=== PATIENT | female | born 1940 | race Caucasian/White ===

== ENCOUNTER 2022-01-29 15:42 | Emergency (ER) | payer MEDICARE, OTHER ==
[2022-01-29 16:00] VITALS: BP 153/71
[2022-01-29] MEDS ORDERED: SODIUM CHLORIDE 0.9% 1,000 ML IV STA (16:02)
[2022-01-29] MEDS ORDERED: ONDANSETRON 4 MG/2 ML VIAL IVP STA (16:02)
--- NOTE | 2022-01-29 16:32 | ED Physician Documentation ---
History of Present Illness - Stated complaint Stated Complaint: UNABLE TO EAT - Chief complaint Chief Complaint: Abd Pain - History obtained from History obtained from: Patient - Additonal information Additional information: Patient is an 81-year-old female with a history of pancreatic cancer status post stent placement presenting for evaluation of ongoing nausea and generalized weakness for the last week since starting a new chemotherapy. She had chemo on January 24 and since that time has had decreased oral intake, 2 loose episodes of stool today which have improved after Imodium and overall feeling very weak. Her oncologist is Dr. Delgado at [facility]. She was directed to the emergency department for check of her labs and IV hydration. She does have p.o. Zofran and Compazine at home which do help with the nausea but the Compazine makes her feel very drowsy and does not help with her taking in more. She has not had any dizziness, falls, chest pain, difficulty breathing or dysuria. Review of Systems Constitutional: denies: Fever Nose: denies: Congestion Cardiac: denies: Chest pain / pressure Respiratory: denies: Dyspnea GI: reports: Nausea, Diarrhea (x2). denies: Abdominal Pain : denies: Dysuria Musculoskeletal: denies: Back pain Neurologic: reports: Generalized weakness PD PAST MEDICAL HISTORY - Past Medical History Endocrine/Autoimmune: HyPOthyroidism - Past Surgical History Past Surgical History: Yes /UNION CARPENTER: Oophrectomy - Present Medications Home Medications: Ambulatory Orders Medication Instructions Recorded Confirmed Amoxicillin/Potassium Clav 1 each PO BID #14 tablet 11/19/14 [Augmentin 875-125 Tablet] HYDROcod/ACETAM 5/325 [Vicodin 1 - 2 ea PO Q6H PRN #15 tablet 11/19/14 5/325] Levothyroxine Sodium 11/19/14 11/19/14 - Allergies Allergies/Adverse Reactions: Allergies Allergy/AdvReac Type Severity Reaction Status Date / Time bee's Allergy Respiratory Uncoded 01/29/22 16:00 - Social History Does the pt smoke?: No Smoking Status: Never smoker Does the pt drink ETOH?: Yes Does the pt have substance abuse?: No - Immunizations Immunizations are current?: Yes - POLST Patient has POLST: No PD ED PE NORMAL - General General: Alert and oriented X 3, No acute distress, Well developed/nourished - HEENT HEENT: Atraumatic, Moist mucous membranes - Neck Neck: Supple, no meningeal sign - Cardiac Cardiac: RRR, Strong equal pulses - Respiratory Respiratory: No respiratory distress, Clear bilaterally - Abdomen Abdomen: Soft, Non tender, Non distended - Derm Derm: Warm and dry - Extremities Extremities: No edema, No calf tenderness / cord - Neuro Neuro: Alert and oriented X 3, No motor deficit, Normal speech Results - Vitals Vitals: Vital Signs - 24 hr 01/29/22 15:55 Temperature 36 C L Heart Rate 75 Respiratory 16 Rate Blood Pressure 153/71 H O2 Saturation 97 Oxygen O2 Source Room air - Labs Labs: Laboratory Tests 01/29/22 01/29/22 17:20 17:20 WBC 3.7 L RBC 2.99 L Hgb 9.4 L Hct 28.5 L MCV 95.3 MCH 31.4 H MCHC 33.0 RDW 14.1 Plt Count 165 MPV 10.0 Neut # (Auto) 2.3 Lymph # (Auto) 1.2 L Moore # (Auto) 0.1 Eos # (Auto) 0.1 Baso # (Auto) 0.0 Absolute Nucleated RBC 0.00 Nucleated RBC % 0.0 Sodium 137 Potassium 3.1 L Chloride 103 Carbon Dioxide 25 Anion Gap 9.0 BUN 23 H Creatinine 0.9 Estimated GFR (MDRD) 60 L Glucose 121 H Calcium 8.3 L Total Bilirubin 1.9 H AST 62 H ALT 80 H Alkaline Phosphatase 502 H Total Protein 5.6 L Albumin 2.7 L Globulin 2.9 Albumin/Globulin Ratio 0.9 L Lipase 21 L PD MEDICAL DECISION MAKING - ED course Complexity details: reviewed results, re-evaluated patient, d/w patient, d/w family ED course: Pt presenting with nausea and poor PO intake since start of chemo this week. Vitals reassuring. Labs reviewed with no previous for comparison but pt has known pancreatic cancer with stent. Clinically do not think stent is obstructed. No abdominal pain. Feeling better with IV fluids and anti emetics, says she is feeling hungry. Tolerating PO and comfortable with close follow up with her oncologist. Daughter at bedside and also in agreement with plan. Departure - Departure Disposition: 01 Home, Self Care Clinical Impression: Chemotherapy-induced nausea, Decreased appetite, Hypokalemia Condition: Stable Instructions: ED Nausea Vomiting Comments: You were evaluated for nausea in the setting of recent chemotherapy. It may be a side effect from your chemo. I would recommend continuing with the medication to have at home for your nausea including Zofran and Compazine. Please continue with small amounts of food and fluid frequently throughout the day. It is important to stay hydrated. Your potassium level was slightly low and we did replace this. Your bilirubin level is 1.9 and your liver markers are slightly elevated which I suspect is related to your underlying neoplasm. However I am not able to access any old labs for comparison and would recommend close follow- up with your specialists. If you have any new or worsening symptoms please return to the emergency department. Discharge Date/Time: 01/29/22 19:10
[2022-01-29 17:27] LABS: BASOPHILS % (AUTO) 0.5 %; EOSINOPHILS # (AUTO) 0.1 10^3/uL (0.0-0.7); EOSINOPHILS % (AUTO) 2.2 %; HCT - HEMATOCRIT 28.5 % (37.0-47.0); HGB - HEMOGLOBIN 9.4 g/dL (12.0-16.0); LYMPHOCYTES # (AUTO) 1.2 10^3/uL (1.5-3.5); LYMPHOCYTES % (AUTO) 32.6 %; MEAN CORPUSCULAR HEMOGLOBIN 31.4 pg (27.0-31.0); MEAN CORPUSCULAR VOLUME 95.3 fL (81.0-99.0); MONOCYTES # (AUTO) 0.1 10^3/uL (0.0-1.0); MONOCYTES % (AUTO) 1.9 %; NEUTROPHILS # (AUTO) 2.3 10^3/uL (1.5-6.6); NEUTROPHILS % (AUTO) 62.3 %; PLT - PLATELET COUNT 165 10^3/uL (130-450); RED BLOOD COUNT 2.99 10^6/uL (4.20-5.40); RED CELL DISTRIBUTION WIDTH 14.1 % (12.0-15.0); WHITE BLOOD COUNT 3.7 x10^3/uL (4.8-10.8)
[2022-01-29 17:38] LABS: ALBUMIN 2.7 g/dL (3.2-5.5); ALBUMIN/GLOBULIN RATIO 0.9 (1.0-2.2); BILIRUBIN,TOTAL 1.9 mg/dL (0.2-1.0); CALCIUM 8.3 mg/dL (8.5-10.3); CREATININE 0.9 mg/dL (0.4-1.0); POTASSIUM 3.1 mmol/L (3.5-5.0); TOTAL PROTEIN 5.6 g/dL (6.7-8.2)
[2022-01-29] MEDS ORDERED: POTASSIUM CHLORIDE 20 MEQ TABLET PO STA (17:43)
== END 2022-01-29 19:10 | disposition home or self-care (01) ==
LOC: ED 15:42
DX: D49.0 Neoplasm of unspecified behavior of digestive system (principal); F50.89 Other specified eating disorder; E87.6 Hypokalemia
CPT/HCPCS: 36415; 80053; 83690; 85025; 96361; 96374; 99283; 99284; A9270

== ENCOUNTER 2022-04-08 09:55 | Emergency (ER) | payer MEDICARE, OTHER ==
--- NOTE | 2022-04-08 10:25 | ED Physician Documentation ---
PD HPI DYSPNEA - Stated complaint Stated Complaint: SOA - Chief complaint Chief Complaint: Resp - History obtained from History obtained from: Patient, Family - History of Present Illness Timing - onset: How many weeks ago (3) Timing - onset during: Light activity Timing - duration: Weeks (3) Timing - details: Gradual onset, Still present Inciting event(s): Other (treatment for pancreatic cancer leaving patient more short of breath each week) Improved by: O2, Rest, Sitting up Worsened by: Exertion Associated symptoms: Bilateral edema. No: Fever, Cough, Hemoptysis, Wheezing, Chest pain / discomfort, Palpitations, Diaphoresis Similar symptoms before: Has not had sx before Recently seen: Other (getting chemo through [facility] - Additional information Additional information: 82-year-old Blaire Allan has been diagnosed with pancreatic cancer in November of this year. She had a stent placed and had some improvement she is begun and some chemotherapy and has not tolerated the chemotherapy. She has tried 2 different rounds of chemotherapy of different types did not tolerate either one. She was at the oncologist office yesterday and received some fluid and potassium. She has become increasingly dyspneic and today she is frankly dyspneic with any movement. She desaturates into the low 70s. She was coming to the hospital today to go be seen at the wound clinic. She was shuffled from the wound clinic to the emergency department. The patient has had some increasing exertional dyspnea for the past 6 weeks. P articularly worsening over the past week. Nothing like it is today. Review of Systems Constitutional: denies: Fever Eyes: denies: Decreased vision Ears: denies: Ear pain Nose: denies: Rhinorrhea / runny nose, Reviewed and negative Throat: denies: Sore throat Cardiac: reports: Pedal edema. denies: Chest pain / pressure, Palpitations Respiratory: reports: Dyspnea GI: reports: Abdominal Pain (improved) : denies: Dysuria, Frequency PD PAST MEDICAL HISTORY - Past Medical History Endocrine/Autoimmune: HyPOthyroidism, Other (Pancreatic cancer) - Past Surgical History Past Surgical History: Yes /[employer]IE [employer]ER: Oophrectomy - Present Medications Home Medications: Ambulatory Orders Medication Instructions Recorded Confirmed Levothyroxine Sodium 2 tab DAILY 11/19/14 03/25/22 Acetaminophen [Non-Aspirin Pain 500 mg PO PRN PRN 03/25/22 03/25/22 Relief] Calcium Carbonate/Vitamin D3 1 each PO TID 03/25/22 03/25/22 [Calcium 500 mg Chewable Tablet] Diphenoxylate/Atropine [Lomotil] 2 each PO ONCE 03/25/22 03/25/22 Ibuprofen [Motrin] 400 mg PO Q6H PRN 03/25/22 03/25/22 Lipase/Protease/Amylase [Creon Dr 2 cap PO TIDWM 03/25/22 03/25/22 24,000 Unit Capsule] Lisinopril [Zestril] 20 mg PO DAILY 03/25/22 03/25/22 Magnesium Chloride 2 tab PO DAILY 03/25/22 03/25/22 Mirtazapine [Remeron] 0.5 tab PO HS 03/25/22 03/25/22 Omeprazole Magnesium 20 mg PO DAILY 03/25/22 03/25/22 Oxycodone HCl [Roxicodone] 5 mg PO Q6HR PRN 03/25/22 03/25/22 predniSONE [Deltasone] 20 mg PO DAILY 03/25/22 03/25/22 - Allergies Allergies/Adverse Reactions: Allergies Allergy/AdvReac Type Severity Reaction Status Date / Time bee's Allergy Respiratory Uncoded 01/29/22 16:00 - Social History Does the pt smoke?: No Smoking Status: Never smoker Does the pt drink ETOH?: Yes Does the pt have substance abuse?: No - Immunizations Immunizations are current?: Yes - POLST Patient has POLST: No PD ED PE NORMAL - Vitals Vital signs reviewed: Yes (tachy tachypneic hypertensive and hypoxic) - General General: Well developed/nourished, Other (82 y/o female with high flow nasal canula eyes closed. ) - HEENT HEENT: Atraumatic, PERRL, EOMI - Neck Neck: Supple, no meningeal sign, No bony TTP - Cardiac Cardiac: Other (tachy with 2/6 holosystolic murmer at LSB) - Respiratory Respiratory: Other (tachcypneic with diminished breath sounds. ) - Abdomen Abdomen: Soft, Non tender - Derm Derm: Normal color, Warm and dry, No rash - Extremities Extremities: No deformity, Other (trace edema bilaterally ) - Neuro Neuro: city controller 2-12 intact, No motor deficit, No sensory deficit, Normal speech Eye Opening: To Voice Motor: Obeys Commands Verbal: Oriented GCS Score: 14 - Psych Psych: Normal mood, Normal affect Results - Vitals Vitals: Vital Signs - 24 hr 04/08/22 04/08/22 04/08/22 10:06 10:43 11:13 Temperature 36.8 C Heart Rate 111 H 91 Respiratory 35 H 22 Rate Blood Pressure 191/97 H 193/99 H O2 Saturation 75 L 99 80 L If not protocol 15 : Oxygen Flow, liters/minute 04/08/22 04/08/22 04/08/22 11:30 13:00 14:25 Temperature Heart Rate 83 88 Respiratory 17 21 Rate Blood Pressure 166/92 H 145/92 H O2 Saturation 97 98 98 If not protocol 15 15 : Oxygen Flow, liters/minute Oxygen O2 Source Room air Oxygen Flow Rate 15 - EKG (time done) 1035 Rate: Rate (enter#) (92) Rhythm: NSR QRS: LVH, Low voltage Ischemia: Normal ST segments Compare to prior EKG: Old EKG unavailable Computer interpretation: Agree with computer - Labs Labs: Laboratory Tests 04/08/22 04/08/22 04/08/22 10:09 10:09 10:09 WBC 16.9 H RBC 3.23 L Hgb 9.5 L Hct 30.3 L MCV 93.8 MCH 29.4 MCHC 31.4 L RDW 17.5 H Plt Count 193 MPV 10.6 Neut # (Auto) 14.7 H Lymph # (Auto) 1.3 L [place] # (Auto) 0.8 Eos # (Auto) 0.0 Baso # (Auto) 0.1 Absolute Nucleated RBC 0.00 Nucleated RBC % 0.0 Sodium 142 Potassium 3.2 L Chloride 104 Carbon Dioxide 24 Anion Gap 14.0 H BUN 25 H Creatinine 0.8 Estimated GFR (MDRD) 69 L Glucose 187 H Calcium 8.6 Total Bilirubin 2.2 H AST 44 H ALT 46 Alkaline Phosphatase 556 H Troponin I High Sens B-Natriuretic Peptide 508 H Total Protein 6.3 L Albumin 2.9 L Globulin 3.4 Albumin/Globulin Ratio 0.9 L Lipase 23 Nasal Adenovirus (PCR) Nasal B. parapertussis DNA (PCR) Nasal Coronavir 229E PCR Nasal Coronavir HKU1 PCR Nasal Coronavir NL63 PCR Nasal Coronavir OC43 PCR Nasal Enterovir/Rhinovir PCR Nasal Influenza B PCR Nasal Influenza A PCR Nasal Parainfluen 1 PCR Nasal Parainfluen 2 PCR Nasal Parainfluen 3 PCR Nasal Parainfluen 4 PCR Nasal RSV (PCR) Nasal B.pertussis DNA PCR Nasal C.pneumoniae (PCR) Miguelito Human Metapneumo PCR Nasal M.pneumoniae (PCR) Nasal SARS-CoV-2 (PCR) Blood Type Blood Type Recheck Antibody Screen 04/08/22 04/08/22 04/08/22 10:09 10:09 10:09 WBC RBC Hgb Hct MCV MCH MCHC RDW Plt Count MPV Neut # (Auto) Lymph # (Auto) [place] # (Auto) Eos # (Auto) Baso # (Auto) Absolute Nucleated RBC Nucleated RBC % Sodium Potassium Chloride Carbon Dioxide Anion Gap BUN Creatinine Estimated GFR (MDRD) Glucose Calcium Total Bilirubin AST ALT Alkaline Phosphatase Troponin I High Sens 52.3 H* B-Natriuretic Peptide Total Protein Albumin Globulin Albumin/Globulin Ratio Lipase Nasal Adenovirus (PCR) NOT DETECTED Nasal B. parapertussis DNA (PCR) NOT DETECTED Nasal Coronavir 229E PCR NOT DETECTED Nasal Coronavir HKU1 PCR NOT DETECTED Nasal Coronavir NL63 PCR NOT DETECTED Nasal Coronavir OC43 PCR NOT DETECTED Nasal Enterovir/Rhinovir PCR NOT DETECTED Nasal Influenza B PCR NOT DETECTED Nasal Influenza A PCR NOT DETECTED Nasal Parainfluen 1 PCR NOT DETECTED Nasal Parainfluen 2 PCR NOT DETECTED Nasal Parainfluen 3 PCR NOT DETECTED Nasal Parainfluen 4 PCR NOT DETECTED Nasal RSV (PCR) NOT DETECTED Nasal B.pertussis DNA PCR NOT DETECTED Nasal C.pneumoniae (PCR) NOT DETECTED Miguelito Human Metapneumo PCR NOT DETECTED Nasal M.pneumoniae (PCR) NOT DETECTED Nasal SARS-CoV-2 (PCR) NOT DETECTED Blood Type Blood Type Recheck A POSITIVE Antibody Screen 04/08/22 10:39 WBC RBC Hgb Hct MCV MCH MCHC RDW Plt Count MPV Neut # (Auto) Lymph # (Auto) [place] # (Auto) Eos # (Auto) Baso # (Auto) Absolute Nucleated RBC Nucleated RBC % Sodium Potassium Chloride Carbon Dioxide Anion Gap BUN Creatinine Estimated GFR (MDRD) Glucose Calcium Total Bilirubin AST ALT Alkaline Phosphatase Troponin I High Sens B-Natriuretic Peptide Total Protein Albumin Globulin Albumin/Globulin Ratio Lipase Nasal Adenovirus (PCR) Nasal B. parapertussis DNA (PCR) Nasal Coronavir 229E PCR Nasal Coronavir HKU1 PCR Nasal Coronavir NL63 PCR Nasal Coronavir OC43 PCR Nasal Enterovir/Rhinovir PCR Nasal Influenza B PCR Nasal Influenza A PCR Nasal Parainfluen 1 PCR Nasal Parainfluen 2 PCR Nasal Parainfluen 3 PCR Nasal Parainfluen 4 PCR Nasal RSV (PCR) Nasal B.pertussis DNA PCR Nasal C.pneumoniae (PCR) Miguelito Human Metapneumo PCR Nasal M.pneumoniae (PCR) Nasal SARS-CoV-2 (PCR) Blood Type A POSITIVE Blood Type Recheck Antibody Screen NEGATIVE - Rads (name of study) chest Radiology: Prelim report reviewed (Impression: Diffuse bilaterally pulmonary opacities small possibly loculated right pleural effusion.), EMP read indepedently, See rad report Procedures - IVC sono (time) 1020 Bedside IVC sono: IVC measures (cm) (1.56), IVC collapsed c insp (cm) (1.56), High CVP PD MEDICAL DECISION MAKING - ED course Complexity details: reviewed old records, reviewed results, re-evaluated patient, considered differential, d/w patient, d/w family ED course: 82-year-old female with pancreatic cancer not responding to chemotherapy has developed a pleural effusion and hypoxia. This appears to have developed over a period of weeks and the patient now has a requirement of oxygen that exceeds an outpatient rate. I opened discussion with the family regarding goals of care and the patient is DO NOT RESUSCITATE DO NOT INTUBATE with comfort measures. The family is currently looking for assisted living and have not initiated hospice as yet. Today the events have been telling and the family and patient are considering hospice. We consulted our social media editor who was able to review potential venues for hospice and home care. The patient requires 15 liters through high flow nasal cannula which is not available as an outpatient. We provided lasix as a potential improvement in the effusion with hopes of improving the oxygen requirement. Our hospitalist was helpful in evaluating the patient and has agreed to place the patient in the hospital for comfort care and potential transition to hospice. Departure - Departure Disposition: 66 [facility] DC/Xfer Clinical Impression: Pleural effusion on right, Hypoxia, End of life care Pancreatic cancer Qualifiers: Pancreatic malignancy location: unspecified Qualified Code(s): C25.9 - Malignant neoplasm of pancreas, unspecified
[2022-04-08 10:32] LABS: BASOPHILS # (AUTO) 0.1 10^3/uL (0.0-0.1); BASOPHILS % (AUTO) 0.4 %; EOSINOPHILS % (AUTO) 0.1 %; HCT - HEMATOCRIT 30.3 % (37.0-47.0); HGB - HEMOGLOBIN 9.5 g/dL (12.0-16.0); LYMPHOCYTES # (AUTO) 1.3 10^3/uL (1.5-3.5); LYMPHOCYTES % (AUTO) 7.5 %; MEAN CORPUSCULAR HEMOGLOBIN 29.4 pg (27.0-31.0); MEAN CORPUSCULAR HGB CONC 31.4 g/dL (32.0-36.0); MEAN CORPUSCULAR VOLUME 93.8 fL (81.0-99.0); MEAN PLATELET VOLUME 10.6 fL (7.9-10.8); MONOCYTES # (AUTO) 0.8 10^3/uL (0.0-1.0); MONOCYTES % (AUTO) 4.5 %; NEUTROPHILS # (AUTO) 14.7 10^3/uL (1.5-6.6); NEUTROPHILS % (AUTO) 86.7 %; PLT - PLATELET COUNT 193 10^3/uL (130-450); RED BLOOD COUNT 3.23 10^6/uL (4.20-5.40); RED CELL DISTRIBUTION WIDTH 17.5 % (12.0-15.0); WHITE BLOOD COUNT 16.9 x10^3/uL (4.8-10.8)
--- NOTE | 2022-04-08 10:46 | XRAY Report ---
PROCEDURE: Chest 1 View X-Ray INDICATIONS: soa TECHNIQUE: One view of the chest was acquired. COMPARISON: None. FINDINGS: Surgical changes and devices: A right chest Port-A-Cath is seen with catheter tip projecting over th e right innominate vein versus upper superior vena cava. Lungs and pleura: Diffuse bilateral pulmonary opacities are seen with more dense consolidation in th e right mid to lower lung zones. Air small right pleural effusion is present. No pneumothorax is seen . Mediastinum: Mediastinal contours appear normal. Heart size is normal. Bones and chest wall: No suspicious bony lesions. Overlying soft tissues appear unremarkable. Degen erative changes in the spine. IMPRESSION: Diffuse bilateral pulmonary opacities. Small possibly loculated right pleural effusion. Reviewed by: Emmanuel Martinez MD on 04/08/2022 10:44 AM [facility] Approved by: Emmanuel Martinez MD on 04/08/2022 10:44 AM [facility] Station ID: [id number]
[2022-04-08 10:58] LABS: ALBUMIN 2.9 g/dL (3.2-5.5); ALBUMIN/GLOBULIN RATIO 0.9 (1.0-2.2); BILIRUBIN,TOTAL 2.2 mg/dL (0.2-1.0); CALCIUM 8.6 mg/dL (8.5-10.3); CREATININE 0.8 mg/dL (0.4-1.0); POTASSIUM 3.2 mmol/L (3.5-5.0); TOTAL PROTEIN 6.3 g/dL (6.7-8.2)
[2022-04-08 11:48] LABS: B. PARAPERTUSSIS- RESP PCR PAN NOT DETECTED; B. PERTUSSIS- RESP PCR PANEL NOT DETECTED; C. PNEUMONIAE- RESP PCR PANEL NOT DETECTED; CORONAVIRUS 229E-RESP PCR NOT DETECTED; CORONAVIRUS HKU1-RESP PCR NOT DETECTED; CORONAVIRUS NL63-RESP PCR NOT DETECTED; CORONAVIRUS OC43-RESP PCR NOT DETECTED; HUMAN METAPNEUMOVIRUS NOT DETECTED; INFLUENZA A- RESP PCR PANEL NOT DETECTED; INFLUENZA B - RESP PCR PANEL NOT DETECTED; M. PNEUMONIAE- RESP PCR PANEL NOT DETECTED; PARAINFLUENZA VIRUS 1 NOT DETECTED; PARAINFLUENZA VIRUS 2 NOT DETECTED; PARAINFLUENZA VIRUS 3 NOT DETECTED; PARAINFLUENZA VIRUS 4 NOT DETECTED; RHINOVIRUS/ENTEROVIRUS NOT DETECTED; RSV- RESP PCR PANEL NOT DETECTED; SARS-CoV-2 -RESP PCR PANEL NOT DETECTED
[2022-04-08] MEDS ORDERED: FUROSEMIDE 40 MG/4 ML VIAL IVP STA (11:51)
[2022-04-08 18:42] LABS: BILIRUBIN,URINE NEGATIVE (NEGATIVE); GLUCOSE, URINE (UA) NEGATIVE (NEGATIVE); KETONES,URINE (UA) NEGATIVE (NEGATIVE); LEUKOCYTE ESTERASE, URINE NEGATIVE (NEGATIVE); NITRITE,URINE NEGATIVE (NEGATIVE); OCCULT BLOOD,URINE NEGATIVE (NEGATIVE); PH,URINE 5.5 PH (5.0-7.5); PROTEIN,URINE NEGATIVE (NEGATIVE); UROBILINOGEN,URINE 0.2 (NORMAL) E.U./dL (NORMAL)
[2022-04-08 18:43] LABS: CLARITY,URINE CLEAR (CLEAR)
[2022-04-09] MEDS ORDERED: IPRATROPIUM/ALBUTEROL 3 ML NEB INH STA (11:49)
[2022-04-09] MEDS ORDERED: DEXAMETHASONE 10 MG/ML VIAL PO STA (11:49)
[2022-04-09] MEDS ORDERED: CHERRY SYRUP 10 ML UDC PO ONE (11:49)
--- NOTE | 2022-04-09 13:26 | ED Physician Documentation ---
ED Addendum - Addendum Addendum: 04/09/22 13:23 82-year-old female transitioning to hospice through the emergency department with pancreatic cancer, pleural effusion resulting in significant hypoxia. The family is preparing to take the patient home to hospice and they are working on facilities and resources. Today the patient appears slightly more alert and her oxygen saturations continue to be poor off of oxygen. She has an oxygen requirement of nearly 10 L on high flow nasal canula. Today we have administered decadron, more lasix and a duoneb treatment. 04/09/22 18:52 The patient has some improvement in her overall wellbeing and alertness and she is able to sign her POLST form. Family is making arrangements for transition to hospice and a facility in [place] has been selected.
--- NOTE | 2022-04-09 23:35 | ED Physician Documentation ---
ED Addendum - Addendum Addendum: 04/09/22 23:33 I talked briefly with the patient. She said she was comfortable with her current oxygenation and breathing status. She states she was not having any feeling of air hunger or distress or anxiety. Asked her to let us know if she were to start having that as we could provide medications to help. Considerations would be morphine 2 mg to 5 mg IV or p.o. to help with anxiety or feeling of air hunger. She did not have any notable secretions at this point but could use atropine eyedrops orally if needed for secretions or phlegm. Nebulizers periodically if needed for wheezing or cough. At this point I did not place any orders that she seemed comfortable for now.
[2022-04-10] MEDS ORDERED: MORPHINE 2 MG/ML CARPUJECT IVP STA (06:16)
[2022-04-10] MEDS ORDERED: ATROPINE 1% OPHTH DROPS 2 ML SL PRN (06:18)
[2022-04-10] MEDS: MORPHINE 2 MG/ML CARPUJECT IVP PRN (21:04)
[2022-04-11] MEDS: MORPHINE 2 MG/ML CARPUJECT IVP PRN ×2 (01:36→04:11)
--- NOTE | 2022-04-11 03:56 | ED Physician Documentation ---
ED Addendum - Addendum Addendum: 04/11/22 03:55 The patient remains resting and seems comfortable. I did not arouse her from sleep during the night. No reported complaints from the patient to nursing. She is remaining on nasal cannula oxygen. I did hear from one of the hospice nurses that they are anticipating discharge from their service and therefore should be able to hopefully have an intake this coming day (Monday) likely in the afternoon.
[2022-04-11 04:17] VITALS: BP 178/87
--- NOTE | 2022-04-11 12:14 | ED Physician Documentation ---
ED Addendum - Addendum Addendum: Patient has been accepted to an assisted living facility and hospice is set to take over her care on Monday. Social work is asked that I send prescriptions For her until hospice takes over on Monday. Patient is on an oxygen mask here.Son is at the bedside is in agreement with plan for transfer today.His oncologist from [facility] did call and I did review the patient's presentation with her.At the request of the oncologist I did speak with her son at the bedside regarding a thoracentesis for the pleural effusion. We did review risks and benefits of this procedure and ultimately it was decided To continue with our current plan which is to get her to an assisted living facility here shortly And manage her symptoms otherwise For end-of-life care. Departure - Departure Disposition: 01 Home, Self Care Clinical Impression: Pleural effusion on right, Hypoxia, End of life care Pancreatic cancer Qualifiers: Pancreatic malignancy location: unspecified Qualified Code(s): C25.9 - Malignant neoplasm of pancreas, unspecified Condition: Serious Prescriptions: Morphine Oral Soln [Roxanol] 10 mg PO Q4H PRN #8 ml PRN Reason: Pain Ondansetron Odt [Zofran] 4 mg TL Q6H PRN #10 tablet PRN Reason: Nausea / Vomiting Comments: Your prescriptions were sent to the [facility] pharmacy in [place] - This includes pain and nausea medication. You have been on 15 L of oxygen. You can titrate this to your comfort. Discharge Date/Time: 04/11/22 13:50
== END 2022-04-11 13:50 | disposition home or self-care (01) ==
LOC: ED 09:55
DX: J90 Pleural effusion, not elsewhere classified (principal); R09.02 Hypoxemia; C25.9 Malignant neoplasm of pancreas, unspecified; Z99.81 Dependence on supplemental oxygen; Z20.822 Contact with and (suspected) exposure to COVID-19
CPT/HCPCS: 36415; 71045; 80053; 81003; 83690; 83880; 84484; 85025; 86850; 86900; 86901; 87633; 93005; 94640; 94761; 96374; 96375; 96376; 99284; 99285; A9270; 81001; 87086

== ENCOUNTER → 2022-04-11 | Outpatient (CLI) | payer MEDICARE, OTHER | END | disposition hospice, home (50) | LOC: EMS 14:03 | PROVIDERS: ATTEND Emergency Medicine | DX: Z51.5 Encounter for palliative care (principal); C25.9 Malignant neoplasm of pancreas, unspecified; Z99.81 Dependence on supplemental oxygen | CPT/HCPCS: A0425; A0428 ==